=== PATIENT | female | born 1960 | race Hispanic/Latino ===

== ENCOUNTER 2017-12-29 13:42 | Outpatient (CLI) | payer BC | END 2017-12-29 13:43 | disposition home or self-care (01) | LOC: BICMAMMO 13:42 | PROVIDERS: ATTEND Family Medicine | DX: Z12.31 Encounter for screening mammogram for malignant neoplasm of breast (principal) | CPT/HCPCS: 77063; 77067 ==

== ENCOUNTER 2018-01-08 14:25 | Outpatient (CLI) | payer OTHER | END 2018-01-08 14:26 | disposition home or self-care (01) | LOC: DTY/OP 14:25 | PROVIDERS: ATTEND Family Medicine | DX: E11.9 Type 2 diabetes mellitus without complications (principal) | CPT/HCPCS: 97802 ==

== ENCOUNTER 2018-01-18 16:00 | Outpatient (CLI) | payer BC | END 2018-01-18 16:01 | disposition home or self-care (01) | LOC: SLEEPLAB 16:00 | PROVIDERS: ATTEND Family Medicine | DX: G47.10 Hypersomnia, unspecified (principal); G47.9 Sleep disorder, unspecified; G47.33 Obstructive sleep apnea (adult) (pediatric); G47.00 Insomnia, unspecified; R53.83 Other fatigue; R06.83 Snoring; E11.9 Type 2 diabetes mellitus without complications; E66.9 Obesity, unspecified; Z68.22 Body mass index [BMI] 22.0-22.9, adult | CPT/HCPCS: 95806 ==

== ENCOUNTER 2018-03-23 19:30 | Outpatient (CLI) | payer BC | END 2018-03-23 19:31 | disposition home or self-care (01) | LOC: SLEEPLAB 19:30 | PROVIDERS: ATTEND Family Medicine | DX: G47.33 Obstructive sleep apnea (adult) (pediatric) (principal); G47.9 Sleep disorder, unspecified; G47.10 Hypersomnia, unspecified; E66.9 Obesity, unspecified; E11.9 Type 2 diabetes mellitus without complications; R06.83 Snoring; R53.83 Other fatigue | CPT/HCPCS: 95811 ==

== ENCOUNTER 2020-07-01 15:41 | Emergency (ER) | payer BC ==
[~2020-07-01 15:41] MED LIST: Iopamidol-370 76% 500 ML 1 ML ONE
[2020-07-01 16:16] LABS: #Eosinphils 0.1 thou/uL (0.0-0.7); #Monocytes 0.6 thou/uL (0.11-0.59); %Basophils 0.6 % (0.0-1.0); %Eosinophils 1.3 % (0.0-10.0); %Lymphocytes 22.8 % (21.0-51.0); %Monocytes 6.6 % (0.0-10.0); %Neutrophils 68.7 % (42.0-75.0); Hemoglobin 13.4 g/dL (12.0-16.0); Mean Corpuscular HGB CONC 35.9 g/dL (32.0-36.0); Mean Corpuscular Hemoglobin 32.7 pg (27.0-31.0); Mean Corpuscular Volume 91.3 fL (78.0-98.0); Mean Platelet Volume 7.8 fL (7.4-10.4); Platelet Count 265 thou/uL (130-400); RBC Distribution Width 11.2 % (11.5-14.5); White Blood Cell (WBC) Count 8.8 thou/uL (4.8-10.8)
[2020-07-01] MEDS ORDERED: HYDROmorphone 0.5 MG/0.5 ML SYRINGE ONE (16:21)
[2020-07-01] MEDS ORDERED: Ondansetron PF 4 MG/2 ML Vial ONE (16:21)
[2020-07-01 16:39] LABS: ALT (SGPT) 20 U/L (8-55); AST (SGOT) 22 U/L (5-34); Albumin 4.7 g/dL (3.5-5.0); Alkaline Phosphatase 75 U/L (40-110); Anion Gap 13 mmol/L (10-20); BUN (Urea Nitrogen) 10 mg/dL (9.8-20.1); Bilirubin, Total 0.6 mg/dL (0.2-1.2); Calc. Creatinine Clearance 0 mL/min (70-130); Calcium 10.2 mg/dL (7.8-10.44); Carbon Dioxide 26 mmol/L (22-29); Chloride 103 mmol/L (98-107); Globulin 3.3 g/dL (2.4-3.5); Glucose 94 mg/dL (70-105); Lipase 30 U/L (8-78); Potassium 3.6 mmol/L (3.5-5.1); Sodium 138 mmol/L (136-145)
== END 2020-07-01 19:25 | disposition home or self-care (01) ==
LOC: ERS 15:41
DX: R10.11 Right upper quadrant pain (principal); R10.816 Epigastric abdominal tenderness
CPT/HCPCS: 36415; 74177; 76705; 80053; 83690; 85025; 96374; 96375; J1170; J2405; Q9967

== ENCOUNTER 2021-07-14 08:22 | Outpatient (CLI) | payer BC ==
[2021-07-14 10:05] LABS: Estimated GFR-MDRD - POC Greater than 90
== END 2021-07-14 08:23 | disposition home or self-care (01) ==
LOC: BICMRI 08:22
PROVIDERS: ATTEND Physician Assistant Medical
DX: K86.1 Other chronic pancreatitis (principal); R10.11 Right upper quadrant pain; K83.1 Obstruction of bile duct
CPT/HCPCS: 74183; 82565

== ENCOUNTER 2021-08-09 09:43 | Outpatient (CLI) | payer BC | END 2021-08-09 09:44 | disposition home or self-care (01) | LOC: SCSMRI 09:43 | PROVIDERS: ATTEND Internal Medicine Gastroenterology | DX: M54.50 Low back pain, unspecified (principal); G89.29 Other chronic pain | CPT/HCPCS: 72157 ==

== ENCOUNTER 2021-11-03 13:33 | Outpatient (CLI) | payer BC | END 2021-11-03 13:34 | disposition home or self-care (01) | LOC: BICMAMMO 13:33 | PROVIDERS: ATTEND Family Medicine | DX: Z12.31 Encounter for screening mammogram for malignant neoplasm of breast (principal) | CPT/HCPCS: 77063; 77067 ==

== ENCOUNTER 2023-04-13 12:43 | Outpatient (CLI) | payer OTHER | END 2023-04-13 12:44 | disposition home or self-care (01) | LOC: BICMAMMO 12:43 | PROVIDERS: ATTEND Family Medicine | DX: Z12.31 Encounter for screening mammogram for malignant neoplasm of breast (principal) | CPT/HCPCS: 77063; 77067 ==